=== PATIENT | female | born 1945 ===

== ENCOUNTER → 2023-05-07 13:40 | Outpatient (BNVA) | payer MEDICARE, SELFPAY | PROVIDERS: PCP Internal Medicine; Referring Provider Internal Medicine; Visit Provider Psychiatry & Neurology Neurology | DX: D32.0 Benign neoplasm of cerebral meninges (principal); R41.3 Other amnesia; Z87.820 Personal history of traumatic brain injury | CPT/HCPCS: 99205 ==